=== PATIENT | female | born 1960 | race Caucasian/White ===

== ENCOUNTER 2017-08-02 18:57 | Emergency (ER) | payer OTHER ==
[2017-08-02 19:09] VITALS: BP 121/75; PULSE 70; TEMP 98; BMI 31.1
--- NOTE | 2017-08-02 19:09 | PDOC ---
Rapid Medical Evaluation Time Seen by Provider: 08/02/17 19:06 Medical Evaluation: Allergies Allergy/AdvReac Type Severity Reaction Status Date / Time No Known Allergies Allergy Verified 08/02/17 19:05 08/02/17 19:06 I have performed a brief in-person evaluation of this patient. The patient presents with a chief complaint of: L buttock pain w/ radiation to leg, worse when sitting. No trauma Pertinent physical exam findings:unremarkable I have ordered the following:none The patient will proceed to the ED for further evaluation. Discharge Disposition - Diagnosis Back pain Qualifiers: Back pain location: low back pain Chronicity: acute Back pain laterality: left Sciatica presence: without sciatica Qualified Code(s): M54.5 - Low back pain - Referrals - Patient Instructions - Post Discharge Activity
--- NOTE | 2017-08-02 22:27 | PDOC ---
History of Present Illness - General Chief Complaint: Back Pain Stated Complaint: PAIN Time Seen by Provider: 08/02/17 19:06 - History of Present Illness Initial Comments: 56-year-old female presents for evaluation of atraumatic onset of lower back pain with associated left hip pain pain is described as achy exacerbated with sitting for too long relieved with rest and with radiation into the anterior left thigh and hip she denies any loss of bowel or bladder function no other associated symptoms. 08/02/17 22:23 Past History - Past Medical History Allergies/Adverse Reactions: Allergies Allergy/AdvReac Type Severity Reaction Status Date / Time No Known Allergies Allergy Verified 08/02/17 19:05 Home Medications: Ambulatory Orders Methylprednisolone [Medrol Dose Yuri] 4 mg PO ASDIR #21 tablet 08/02/17 COPD: No Other medical history: back problems - Suicide/Smoking/Psychosocial Hx Smoking History: Never smoked Information on smoking cessation initiated: No Hx Alcohol Use: No Drug/Substance Use Hx: No Substance Use Type: None Review of Systems - Review of Systems Musculoskeletal: Yes: Back Pain. No: Joint Swelling, Muscle Pain, Muscle Weakness, Joint Stiffness All Other Systems: Reviewed and Negative *Physical Exam - Vital Signs Last Vital Signs Temp Pulse Resp BP Pulse Ox 98.0 F 70 18 121/75 100 08/02/17 19:07 08/02/17 19:07 08/02/17 19:07 08/02/17 19:07 08/02/17 19:07 - Physical Exam Comments: Jerson spine skin color and temperature within normal limits is no palpable musculature spasm she has 5 out of 5 strength in bilateral lower extremities and thighs and calves are soft and nontender she has no focal sensory motor deficits is a mildly positive straight leg raise test on the left negative on the right for range of motion of bilateral hips without discomfort. 08/02/17 22:24 ED Treatment Course - RADIOLOGY Radiology Studies Ordered: Category Date Time Status PELVIS [RAD] Stat Radiology 08/02/17 21:46 Taken SPINE-LUMBAR ONLY [RAD] Stat Radiology 08/02/17 21:46 Taken Medical Decision Making - Medical Decision Making X-rays the lumbar spine and pelvis show mild arthritic changes throughout the lumbar spine with significant changes at L5 and S1 08/02/17 22:24 *DC/Admit/Observation/Transfer Diagnosis at time of Disposition: Lumbar radicular syndrome Back pain Qualifiers: Back pain location: low back pain Chronicity: acute Back pain laterality: left Sciatica presence: without sciatica Qualified Code(s): M54.5 - Low back pain - Referrals Referrals: Joshua James MD [Staff Physician] - - Patient Instructions Printed Discharge Instructions: Lumbar Radiculopathy, DI for Lumbar Radiculopathy Additional Instructions: Return to the emergency room if symptoms go on resolve or worsen prior to follow up with orthopedic surgery return to emergency room if any loss of bowel or bladder function - Post Discharge Activity
== END 2017-08-02 22:34 | disposition home or self-care (01) ==
LOC: JERFT 18:57
DX: M54.16 Radiculopathy, lumbar region (principal)
CPT/HCPCS: 72100-TC-FY; 72170-TC-FY; 99281-25